=== PATIENT | male | born 1985 | race Caucasian/White ===

== ENCOUNTER 2024-08-20 14:04 | Inpatient (IN) | payer OTHER ==
[2024-08-20] VITALS (14 sets, daily range): BP systolic 126–221; BP diastolic 74–115
[~2024-08-20] VITALS: Ht 177.8 cm; Wt 167.3 kg
[2024-08-20] MEDS ORDERED: SODIUM CHLORIDE 0.9% 1,000 ML IV ONE (14:15)
[2024-08-20] MEDS ORDERED: CEFTRIAXONE SODIUM 2 GM in SODIUM CHLORIDE 0.9% 100 ML IV ONE (14:15)
[2024-08-20] MEDS ORDERED: methylPREDNISolone SOD SUCC 125 MG/2 ML VIAL IV ONE (14:15)
[2024-08-20] MEDS ORDERED: ALBUTEROL SULFATE 0.5% 2.5 MG/0.5 ML VIAL INH ONE (14:15)
[2024-08-20 14:27] LABS: BASOPHILS 0.5 % (0-2); HEMOGLOBIN 13.5 g/dL (12.0-18.0); LYMPHOCYTES 7.3 % (24-44); MCH 22.6 (27-36); MCHC 31.5 g/dl (30-36); MCV 71.7 fl (81-99); MONOCYTES 8.9 % (0-12); NEUTROPHILS 83.3 % (39-80); PLATELET COUNT 263 K/uL (140-440); RBC 5.99 M/ul (4.3-5.7); RDW 19.4 (10.5-15.0)
[2024-08-20] MEDS ORDERED: LOSARTAN POTAS100 MG PO (14:29)
[2024-08-20] MEDS ORDERED: BUPROPION XL300 MG PO (14:29)
[2024-08-20] MEDS ORDERED: NAPROXEN500 MG PO (14:30)
[2024-08-20] MEDS ORDERED: TOPROL XL25 MG PO (14:30)
[2024-08-20] MEDS ORDERED: ZANAFLEX2 M1 PO (14:31)
[2024-08-20] MEDS ORDERED: OMEPRAZOLE20 MG PO (14:31)
[2024-08-20] MEDS ORDERED: AMLODIPINE BESY10 MG PO (14:31)
[2024-08-20 14:46] LABS: LACTIC ACID, BLOOD 1.6 mmol/L (0.4-2.0)
[2024-08-20 14:47] LABS: ALBUMIN 3.3 g/dL (3.4-5.0); ALBUMIN/GLOBULIN RATIO 0.77 (1.1-2.4); ANION GAP 9.3 (7-21); BUN/CREATININE RATIO 12.3 (6.0-28.6); CALCIUM 8.7 mg/dL (8.5-10.1); CREATININE, SERUM 1.3 mg/dL (0.70-1.30); POTASSIUM 4.3 mmol/L (3.5-5.1); PROTEIN, TOTAL 7.6 g/dL (6.4-8.2)
[2024-08-20] MEDS ORDERED: AZITHROMYCIN 500 MG in DEXTROSE 5% 250 ML IV ONE (15:15)
[2024-08-20] MEDS ORDERED: LOSARTAN POTASSIUM 100 MG TAB PO ONE (15:30)
[2024-08-20] MEDS ORDERED: ACETAMINOPHEN 325 MG TAB PO PRN (16:15)
[2024-08-20] MEDS ORDERED: ondansetron HCL 4 MG/2 ML VIAL IV PRN (16:15)
[2024-08-20] MEDS ORDERED: TIZANIDINE HCL2 MG PO (16:34)
[2024-08-20 16:43] LABS: CORONAVIRUS COVID-19 AG NEGATIVE (NEGATIVE); INFLUENZA A AG NEGATIVE (NEGATIVE); INFLUENZA B AG NEGATIVE (NEGATIVE)
[2024-08-20 16:45] LABS: LACTIC ACID, BLOOD 1.6 mmol/L (0.4-2.0)
--- NOTE | 2024-08-20 16:48 | NUR ---
PT ARRIVES TO ROOM 127 VIA STRETCHER BY ED RN AND RT. PT ALERT AND TALKING, ABLE TO STAND AND PIVOT TO BED. VAPOTHERM IN PLACE AT 30L/50% FIO2 WITH DYSPNEA WITH ANY EXCERTION/TALKING. SIGNIFICANT OTHER AT BEDSIDE FOR ADMISSION. SINUS TACH IN THE 130'S ON MONITOR, RR 30'S, HYPERTENSIVE. FULL ASSESSMENT NOTED TO HAVE COURSE CRACKLES IN ALL BUT RIGHT UPPER LUNG FIELD. SIGNIFICANT LOWER EXTREMITY EDEMA NOTED. PT HAS NOT VOIDED SINCE 0800 AM. UPDATED.
[2024-08-20] MEDS ORDERED: FUROSEMIDE 40 MG/4 ML VIAL IV ONE (17:15)
--- NOTE | 2024-08-20 17:27 | NUR ---
IV LASIX ADMINISTERED PER EMAR - PT PROVIDED EDUCATION REGARDING FLUID RETENTION, SALT INTAKE, HEART FAILURE AND SOB IN RELATION. PT STATES HE HAS BEEN PROGRESSIVLY BEEN MORE FATIGUED AND SOB SINCE STARTING A NEW DIET 1 YEAR AGO THAT IS HIGH IN SALT. UPDATED ON PT HISTORY OF SYMPTOMS AND POOR HEALTH LITERACY.
[2024-08-20] MEDS ORDERED: niCARdipine HCL 50 MG in DEXTROSE 5% 250 ML IV SCH (17:45)
--- NOTE | 2024-08-20 18:11 | NUR ---
NICARDAPINE GTT STARTED PER EMAR AT 5MG/HR - PT RESTING SITTING UP IN BED, FINISHED WITH DINNER. VAPOTHERM REMAINS AT 30L/50% - SP02 93%. CONTINUED EDUCATION ON HTN PROVIDED.
--- NOTE | 2024-08-20 18:30 | NUR ---
PT TACHICARDIC TO 145 AND DESAT TO 85% WITH MOVEMENT TO EDGE OF BED TO URINATE.
--- NOTE | 2024-08-20 18:57 | NUR ---
VAPOTHERM TITRATED TO 35L AND 55% FI02, PT DESATURATING WHILE SLEEPING WITHOUT APNEA. RT UPDATED.
--- NOTE | 2024-08-20 19:45 | NUR ---
handoff report received from day shift RN. patient resting in bed, RT and family in room. no needs at this time. call light in reach.
[2024-08-20] MEDS ORDERED: ALBUTEROL/IPRATROPIUM 3 ML NEB INH SCH (20:00)
--- NOTE | 2024-08-20 20:00 | NUR ---
UPON INITIAL ASSESSMENT OF PATIENT IV PUMP, NICARDIPINE GTT INFUSING AT 2.5MG/HR. ALTHOUGH MEDICATION HAD NOT BEEN SCANNED IN EMAR FROM DAY SHIFT RN. THIS RN SCANNED MEDICATION AT THIS TIME. MEDICATION FLOWSHEET UPDATED.
--- NOTE | 2024-08-20 20:45 | NUR ---
PATIENT ASSESSMENT COMPLETE. PATIENT ON CPAP SETTINGS 15/5 AT 45% FIO2. PATIENT TOLERATING WELL. PATIENT DENIES ANY PAIN OR NAUSEA AT THIS TIME. PATIENT ON NICARDIPINE GTT AT 2.5MG/HR. IV SITE WNL. PATIENT ALERT AND ORIENTED X4. PATIENT TACHYCARDIC IN THE 120'S. PATIENT HAS NO NEEDS AT THIS TIME. CALL LIGHT IN REACH.
[2024-08-20] MEDS ORDERED: ENOXAPARIN SODIUM 40 MG/0.4 ML SYR SUB-Q SCH (21:00)
--- NOTE | 2024-08-20 21:45 | NUR ---
PATIENT TITRATED OFF NICARDIPINE GTT PER MEDICATION FLOWSHEET. PATIENT BP STABLE. PATIENT REMAINS TACHYCARDIC, HEART RATE 110-120'S. PATIEN DENIES ANY NEEDS AT THIS TIME. CALL LIGHT IN REACH.
[2024-08-20] MEDS ORDERED: methylPREDNISolone SOD SUCC 40 MG/ML VIAL IV SCH (22:00)
--- NOTE | 2024-08-20 22:00 | NUR ---
PATIENT TAKEN OFF CPAP AND PLACED ON VAPOTHERM. TOLERATING WELL. PATIENT SIGNIFICANT OTHER AT BEDSIDE, PROVIDED WITH BLANKETS AND PILLOW. PATIENT HAS NO FURTHER NEEDS AT THIS TIME. CALL LIGHT IN REACH.
--- NOTE | 2024-08-20 23:05 | NUR ---
DR JIMENES PROVIDED WITH UPDATE. NO NEW ORDERS AT THIS TIME.
--- NOTE | 2024-08-20 23:05 | NUR ---
DR JIMENES PROVIDED WITH UPDATE. VERBAL ORDER RECEIVED TO LEAVE NICARDIPINE GTT OFF UNLESS SYSTOLIC BP >180. VERIFIED BACK VIA REPEAT BACK METHOD.
--- NOTE | 2024-08-20 23:28 | NUR ---
PATIENT PLACED BACK ON CPAP AND PROVIDED WITH WARM BLANKET. NO FURTHER NEEDS AT THIS TIME. CALL LIGHT IN REACH.
[2024-08-21] VITALS (29 sets, daily range): BP systolic 117–193; BP diastolic 61–127
--- NOTE | 2024-08-21 01:00 | NUR ---
PATIENT RESTING IN BED WITH EYES CLOSED, NO ACUTE DISTRESS NOTED. PATIENT REMAINS ON CPAP, SETTINGS UNCHANGED. PATIENT REMAINS OFF NICARDIPINE GTT, BP STABLE. PATIENT SIGNIFICANT OTHER AT BEDSIDE. NO NEEDS AT THIS TIME. CALL LIGHT IN REACH.
--- NOTE | 2024-08-21 03:15 | NUR ---
patient resting in bed with eyes closed, no acute distress noted. patient remains on CPAP, tolerating well. no needs at this time. call light in reach.
[2024-08-21 05:31] LABS: BASOPHILS 0.4 % (0-2); HEMATOCRIT 41.8 % (35.0-50.0); HEMOGLOBIN 13.4 g/dL (12.0-18.0); LYMPHOCYTES 7.3 % (24-44); MCH 22.9 (27-36); MCHC 32.1 g/dl (30-36); MCV 71.4 fl (81-99); NEUTROPHILS 88.3 % (39-80); PLATELET COUNT 278 K/uL (140-440); RBC 5.85 M/ul (4.3-5.7); RDW 19.4 (10.5-15.0)
[2024-08-21 05:40] LABS: BUN/CREATININE RATIO 17.55 (6.0-28.6); CALCIUM 9.1 mg/dL (8.5-10.1); CREATININE, SERUM 1.31 mg/dL (0.70-1.30); MAGNESIUM 2.3 mg/dL (1.8-2.4)
--- NOTE | 2024-08-21 05:45 | NUR ---
patient taken off cpap and now on vapotherm. patient provided with fresh ice water. patient denies any pain at this time. patient remains off Nicardipine gtt, BP stable. patient has no further needs at this time. call light in reach.
[2024-08-21 05:59] LABS: BILIRUBIN, URINE NEGATIVE (negative); BLOOD/HGB, URINE NEGATIVE (Negative); KETONE, URINE TRACE (Negative); LEUK ESTERASE, URINE NEGATIVE (negative); NITRITE, URINE NEGATIVE (negative)
[2024-08-21] MEDS ORDERED: FUROSEMIDE 40 MG/4 ML VIAL IV ONE ×2 (06:15→08:00)
[2024-08-21] MEDS ORDERED: LOSARTAN POTASSIUM 50 MG TAB PO SCH (06:15)
--- NOTE | 2024-08-21 07:49 | NUR ---
DR. JIMENES IN ROOM TO SEE PATIENT AT THIS TIME. PATIENT TO GO DOWN FOR A 2 VIEW CXR. PT REMAINS ON VAPOTHERM AT 35L AND 40%. PT OFF NICARDIPINE GTT. PATIENT REPORTS FEELING BETTER THAN YESTERDAY. EDEMA STILL PRESENT IN LOWER LEGS.
[2024-08-21] MEDS ORDERED: buPROPion HCL XL 300 MG TAB.XL.24H PO SCH (09:00)
[2024-08-21] MEDS ORDERED: CEFTRIAXONE SODIUM 2 GM in SODIUM CHLORIDE 0.9% 100 ML IV SCH (09:00)
[2024-08-21] MEDS ORDERED: PANTOPRAZOLE SODIUM 40 MG TABEC PO SCH (09:00)
[2024-08-21] MEDS ORDERED: AZITHROMYCIN 250 MG TAB PO SCH (09:00)
--- NOTE | 2024-08-21 09:10 | NUR ---
ALERT AND ORIENTED WITH HIGH FLOW OXYGEN ON. STATES HE LIVES IN [place], HAS A ROOMMATE. DEMOGRAPHICS VERIFIED. HAS NO DME. DRIVES AT BASELINE. ABLE TO PAY UTILITIES, OBTAIN FOOD AND MEDICATIONS LONG HE HAS A ROOMMATE TO ASSIST, HE STATES. HE HAS NO INSURANCE. STATES HE HAS INITIATED APPLICATION FOR MEDICAID. HAS NO PCP EITHER. STATES HE WOULD PREFER A PCP IN [place], PREFERABLY AT THIS [facility]. CALLED MICHAEL IN MEDICAID ELIGIBILITY TO SPEAK WITH PATIENT. WILL PUT HIM ON LIST TO ESTABLISH CARE AT [facility] AND SEND CHART NOTES FOR REVIEW.
[2024-08-21] MEDS ORDERED: Perflutren Lipid Microspheres 2.2 MG/2 ML VIAL IV ONE (09:29)
[2024-08-21] MEDS ORDERED: OMEPRAZOLE40 MG PO (09:34)
--- NOTE | 2024-08-21 09:35 | NUR ---
MED REC COMPLETE
--- NOTE | 2024-08-21 09:41 | NUR ---
PATIENT TAKEN DOWN TO 2 VIEW CHEST XRAY BY THIS RN AT 0830. PT TOLERATED WELL. PT WAS ON 10 L OXYMASK FOR THIS TRANSFER. PATIENT BACK TO ROOM AND SITS ON EDGE OF BED TO EAT BREAKFAST, BACK ON VAPOTHERM 35L AND 40%. PT IS CURRENTLY 90% LAYING BACK IN BED, GETTING ECHO DONE. HR REMAINS ELEVATED, CURRENTLY 107. BLOOD PRESSURES HAVE BEEN SLOWLY INCREASING WELL, LAST BP 182/99 AND WILL CONTINUE TO MONITOR THIS. PATIENT'S LINDA FLOWERS IN ROOM. DAILY WEIGHT OBTAINED AND PATIET IS ABOUT 6 KG DOWN FROM ADMIT WEIGHT. WILL CONTINUE TO MONITOR.
--- NOTE | 2024-08-21 10:20 | NUR ---
UR CLINICAL REVIEW: ALYSSA, MEETS INPT FOR PNEUMONIA NEED FOR VAPOTHERM OXYGEN, IV ANTIBIOTICS, DIURESIS SELF PAY INPT 08/20/24 @ 1600 ORDER MATCHES REG NO AUTH, SELF PAY, REFERRED TO MEDICAID ELIGIBILITY STAFF PLAN TO DC TO HOME WHEN MEDICALLY STABLE 08/23/24
[2024-08-21] MEDS ORDERED: NIFEdipine XL 30 MG TAB PO SCH (11:00)
--- NOTE | 2024-08-21 11:06 | NUR ---
PHYS THERAPY/OT IN ROOM TO SEE PATIENT. PT TOLERATED WELL.
--- NOTE | 2024-08-21 11:47 | NUR ---
FELICIA DURING SPIRITUAL CARE ROUNDS. PT MINIMALLY CONVERSATIONAL. PROVIDED PRAYER.
[2024-08-21] MEDS ORDERED: PHARMACY RENAL DOSE ADJUSTMENT 1 DOSE MISC PO SCH (12:00)
--- NOTE | 2024-08-21 18:33 | NUR ---
PATIENT SITTING UP ON EDGE OF BED TO EAT DINNER. PATIENT WAS GIVEN PARTIAL BED BATH EARLIER, CLEAN GOWN AND LINEN, AND SHAMPOO CAP. PT WANTING TO TAKE A PROPER SHOWER ONCE HIS FIANCE RETURNS. PATIENT NOW ON VAPOTHERM AT 5 L 100% AND TOLERATING THIS WELL. HR REMAINS ELEVATED; CURRENTLY 110s. LAST BP 153/86. ECHO RESULTS ARE BACK AND IN CHART.
--- NOTE | 2024-08-21 19:40 | NUR ---
handoff report received from day shift RN. patient sitting up awake in bed with significant other at bedside. patient on vapotherm at 5L 100% FIO2. no distress noted. patient has call light in reach.
--- NOTE | 2024-08-21 20:29 | NUR ---
PATIENT TAKEN OFF VAPOTHERM AND PLACED ON 5L NC, SPO2 95%. PATIENT TOLERATING WELL. CALL LIGHT IN REACH.
--- NOTE | 2024-08-21 21:49 | NUR ---
DR KHALIL ON UNIT AND PROVIDED UPDATE
--- NOTE | 2024-08-21 23:08 | NUR ---
PATIENT PLACED ON CPAP, SETTINGS AT 15/5 AND 45%. LIGHTS DIMMED PER REQUEST. PATIENT HAS NO FURTHER NEEDS AT THIS TIME. SIGNIFICANT OTHER REMAINS AT BEDSIDE. CALL LIGHT IN REACH.
[2024-08-22] VITALS (14 sets, daily range): BP systolic 132–174; BP diastolic 53–106
--- NOTE | 2024-08-22 01:31 | NUR ---
PATIENT RESTING IN BED WITH EYES CLOSED, RR 20. PATIENT REMAINS ON CPAP, TOLERATING WELL. NO ACUTE DISTRESS NOTED. PATIENT HAS CALL LIGHT IN REACH.
--- NOTE | 2024-08-22 03:32 | NUR ---
patient noted to desat in to the 60's while asleep. patient awakened and SPO2 back up to 90's. RT called to come assess. CPAP settings changed, FIO2 at 100% to allow patient to recover per RT. this RN and RT at bedside.
--- NOTE | 2024-08-22 05:33 | NUR ---
patient awake and taken off CPAP. patient placed on 5L NC. patient stands up to use urinal and noted to desat as low as 72%. RT in room. patient has call light in reach.
[2024-08-22 05:50] LABS: HEMATOCRIT 41.6 % (35.0-50.0); LYMPHOCYTES 3.3 % (24-44); MCH 22.7 (27-36); MCHC 31.3 g/dl (30-36); MCV 72.4 fl (81-99); MONOCYTES 5.7 % (0-12); PLATELET COUNT 300 K/uL (140-440); RBC 5.74 M/ul (4.3-5.7); RDW 19.6 (10.5-15.0)
[2024-08-22 06:01] LABS: ANION GAP 6.6 (7-21); BUN/CREATININE RATIO 25.89 (6.0-28.6); CALCIUM 8.6 mg/dL (8.5-10.1); CREATININE, SERUM 1.39 mg/dL (0.70-1.30); MAGNESIUM 2.5 mg/dL (1.8-2.4); POTASSIUM 5.6 mmol/L (3.5-5.1)
[2024-08-22] MEDS ORDERED: Calcium Gluconate in NS 1,000 MG/50 ML BAG IV ONE (08:00)
--- NOTE | 2024-08-22 09:05 | NUR ---
PATIENT SITTING UP ON EDGE OF BED AND HAS FINISHED BREAKFAST. PATIENT REPORTS FEELING BETTER OVERALL. PT CURRENTLY ON 3 L NC AND SP02 IS 95%. DAILY WEIGHT HAS INCREASED FROM YESTERDAY. PATIENT NOTES THAT WHEN HE TOOK AMLODIPINE AT HOME, HE NOTICED INCREASED LEG SWELLING AND IT DECREASED AFTER HE STOPPED TAKING THIS MEDICATION AT HOME. PATIENT REPORTS GETTING A DECENT SLEEP LAST NIGHT AND DID WEAR THE CPAP. PT IS AWARE THAT HE DESATURATED FAIRLY LOW IN THE NIGHT, AND STATES, "YEAH THAT'S PROBABLY BEEN HAPPENING AT HOME." PATIENT'S FIANCE IN ROOM. EDEMA STILL PRESENT IN LOWER LEGS, 2-3+. BP THIS AM 151/94 (106). POTASSIUM HIGH AT 5.6 THIS AM. IV CALCIUM GLUCONATE BEING GIVEN. BMP ORDERED FOR 0930 THIS AM. WILL CONTINUE TO MONITOR.
[2024-08-22 09:48] LABS: ANION GAP 6.9 (7-21); BUN/CREATININE RATIO 28.12 (6.0-28.6); CALCIUM 8.7 mg/dL (8.5-10.1); CREATININE, SERUM 1.28 mg/dL (0.70-1.30); POTASSIUM 4.9 mmol/L (3.5-5.1)
--- NOTE | 2024-08-22 09:53 | NUR ---
INFORMED PATIENT MEDICAID HAS BEEN APPROVED. INFORMED HIM FOLLOW-UP APPOINTMENT WILL BE SCHEDULED WITH PHYSICIAN PRIOR TO DC. NO OTHER CM NEEDS AT THIS TIME.
--- NOTE | 2024-08-22 11:01 | NUR ---
PT NOT AVAILABLE FOR VISIT. PROVIDED PRAYER.
[2024-08-22] MEDS ORDERED: FUROSEMIDE 40 MG/4 ML VIAL IV SCH (14:13)
[2024-08-22] MEDS ORDERED: IBLOOD GLUCOSE TEST STRIP 1 EA TEST XX PRN (14:45)
[2024-08-22] MEDS ORDERED: GLUCAGON,HUMAN RECOMBINANT 1 MG/ML VIAL SUB-Q PRN (14:45)
[2024-08-22] MEDS ORDERED: DEXTROSE 50% 50 ML SYR IV PRN ×2 (14:45)
[2024-08-22] MEDS ORDERED: DEXTROSE 5% 1,000 ML IV PRN (14:45)
--- NOTE | 2024-08-22 15:01 | NUR ---
DR. KHALIL IN TO SEE PATIENT AND PLAN OF CARE DISCUSSED. PATIENT TO RECEIVE DOSE OF IV LASIX. ECHO RESULTS DISCUSSED WITH PATIENT AND MD AND PATIENT ALLOWED CHANCE TO ASK QUESTIONS. PATIENT NOW UP TO BATHROOM TO VOID AND HAVE A BM. BED LINENS CHANGED. HR IN THE 110s WITH ACTIVITY, BUT AROUND 100 WHEN RESTING IN BED. PT AGREEABLE WITH PLAN OF CARE.
[2024-08-22] MEDS ORDERED: METOPROLOL SUCCINATE 25 MG TABCR PO SCH (15:23)
[2024-08-22] MEDS ORDERED: IBLOOD GLUCOSE TEST STRIP 1 EA TEST VI SCH (17:00)
[2024-08-22] MEDS ORDERED: INSULIN LISPRO 100 UNIT/ML ML SUB-Q SCH (17:00)
[2024-08-22] MEDS ORDERED: FUROSEMIDE 40 MG/4 ML VIAL IV ONE (18:45)
--- NOTE | 2024-08-22 18:49 | NUR ---
DR. KHALIL NOTIFIED OF LOW URINE OUTPUT AFTER 40 MG IV LASIX. ADDITIONAL 40 MG IV LASIX TO BE ORDERED PER DR. KHALIL. PATIENT REMAINS ON NC AT 3 L AT THIS TIME. PT'S FIANCE IN ROOM. DENIES FURTHER NEEDS.
--- NOTE | 2024-08-22 19:45 | NUR ---
handoff report received from day shift RN. patient remains on 5L NC, tolerating well. patient laying awake in bed with significant other at bedside. no needs at this time. call light in reach.
--- NOTE | 2024-08-22 20:00 | NUR ---
JERAMIE (AKA: DELORIS) NEEDS A SLEEP STUDY DONE POST DISCHARGE. HOWEVER, DELORIS NEEDS TO BE QUALIFIED FOR A HOME BIPAP PRIOR TO DISCHARGE. LESLIECarlos MAY NEED OXYGEN BLED IN TO HOME BIPAP.
--- NOTE | 2024-08-22 20:10 | NUR ---
PATIENT ASSESSMENT COMPLETE. PATIENT SITTING UP AWAKE IN BED. PATIENT ON 3L, NC TOLERATING WELL. PATIENT IV SITE SALINE LOCKED AND WNL. PATIENT DENIES FEELING SOB, PAIN, OR NAUSEA AT THIS TIME. PATIENT UPDATED ON PLAN OF CARE FOR THE NIGHT. VITAL SIGNS STABLE. PATIENT HAS NO NEEDS AT THIS TIME. CALL LIGHT IN REACH.
--- NOTE | 2024-08-22 22:15 | NUR ---
PATIENT PROVIDED WITH FRESH ICE WATER. PATIENT SITTING UP AWAKE IN BED WATCHING HIS IPAD. PATIENT REMAINS ON 3L NC, SPO2 95%. PATIENT HAS NO FURTHER NEEDS AT THIS TIME. CALL LIGHT IN REACH.
--- NOTE | 2024-08-22 22:50 | NUR ---
patient used called light requesting to be placed on CPAP. RT called and in room. no further needs at this time. call light in reach.
--- NOTE | 2024-08-22 22:53 | NUR ---
DELORIS'S CURRENT BIPAP SETTINGS ARE: IPAP 16, EPAP 10, RR 12, I-TIME 0.9, RISE 3, FIO2 245. DELORIS STATED THAT THE SETTINGS ARE COMFORTABLE FOR HIM. ADDITIONALLY, FIO2 IS NOT CURRENTLY ABOVE 30%.
--- NOTE | 2024-08-22 23:32 | NUR ---
DELORIS REMAINS ON THE V60, BUT IS CURRENTLY ON PCV MODE WITH THE FOLLOWING SETTINGS: IPAP 18, EPAP 14, I-TIME 0.8, RISE 2, FIO2 32%.
[2024-08-23] VITALS (15 sets, daily range): BP systolic 128–186; BP diastolic 75–100
--- NOTE | 2024-08-23 00:34 | NUR ---
PATIENT NOTED TO DESAT TO LOW 60'S WHILE ASLEEP ON BIPAP. RT CALLED TO BEDSIDE. THIS RN AND RT REMAIN AT BEDSIDE.
--- NOTE | 2024-08-23 00:35 | NUR ---
patient noted to desat to low 60's while asleep on CPAP. RT called to bedside. this RN and RT in room.
--- NOTE | 2024-08-23 00:36 | NUR ---
DELORIS IS REMAINS ON THE V60. HIS CURRENT SETTINGS ARE: AVAPS VT 500, EPAP 12, MIN P 16, MAX P 20, I-TIME 0.9, RISE 4, FIO2 455. DELORIS IS CURRENTLY WEARING A LARGE MIRAGE QUATTRO FOR A FFM.
[2024-08-23] MEDS ORDERED: ALBUTEROL SULFATE 0.083% 3 ML VIAL INH PRN (01:15)
--- NOTE | 2024-08-23 02:14 | NUR ---
PATIENT RESTING IN BED WITH EYES CLOSED. PATIENT REMAINS ON BIPAP, TOLERATING WELL AT THIS TIME, SPO2 99%. PATIENT HAS NO NEEDS AT THIS TIME, CALL LIGHT IN REACH.
--- NOTE | 2024-08-23 03:33 | NUR ---
DELORIS REMAINS ON THE V60 AVAPS WITH THE FOLLOWING SETTINGS: EPAP: 14, MIN P: 16, MAX P: 20, RR: 18, I-TIME: 0.9, RISE: 3, FIO2: 50%.
--- NOTE | 2024-08-23 05:10 | NUR ---
PT CALLS TO GET OFF OF HIS CPAP AND ON TO NC @ 3L, PROVIDED. URINAL EMPTIED. ICE WATER PROVIDED. PT STATES NO OTHER NEEDS. CALL LIGHT IN REACH.
[2024-08-23 05:34] LABS: BASOPHILS 0.2 % (0-2); EOSINOPHILS 0.1 % (0-6); HEMATOCRIT 41.3 % (35.0-50.0); HEMOGLOBIN 12.8 g/dL (12.0-18.0); MCH 22.4 (27-36); MCV 72.2 fl (81-99); MONOCYTES 5.2 % (0-12); NEUTROPHILS 88.5 % (39-80); PLATELET COUNT 333 K/uL (140-440); RBC 5.72 M/ul (4.3-5.7); RDW 19.8 (10.5-15.0)
[2024-08-23 05:46] LABS: ANION GAP 10.1 (7-21); BUN/CREATININE RATIO 26.71 (6.0-28.6); CALCIUM 8.7 mg/dL (8.5-10.1); CREATININE, SERUM 1.46 mg/dL (0.70-1.30); MAGNESIUM 2.3 mg/dL (1.8-2.4); POTASSIUM 5.1 mmol/L (3.5-5.1)
[2024-08-23] MEDS ORDERED: BUDESONIDE 0.5 MG/2 ML VIAL INH SCH (08:00)
--- NOTE | 2024-08-23 09:30 | NUR ---
INTO SEE PATIENT. TALKED WITH PATIENT ABOUT PLAN OF SETTING PCP UP. ALSO DISCUSSED THE IMPORTANCE OF GETTING A SLEEP STUDY DONE. PATIENT AWARE. ASKED PATIENT IF HE NEEDS TO GO HOME ON OXYGEN WHAT COMPANY HE MAY WANT TO USE. PATIENT CHOICE LETTER GIVEN. PATIENT WOULD LIKE TO USE [employer].
--- NOTE | 2024-08-23 09:40 | NUR ---
TALKED WITH ELISA FROM THE CLINIC. PATIENT SCHEDULED TO SEE DR. DAVILA ON August AT 1:40 PM. APPOINTMENT IN DISCHARGE. CLINIC IS TO GET PATIENT RECORDS FROM [facility] IN [place] WHERE THE PATIENT HAS BEEN PRIMARLIY SEEN. ELISA ALSO WROTE THAT THE PATIENT NEEDS A SLEEP STUDY STAT IF THERE IS ANY CANCELLATIONS.
--- NOTE | 2024-08-23 09:47 | NUR ---
PT UP IN CHAIR, BS 144 1 UNIT INSULIN GIVEN AND EDUCATED PT ON ROUTINE. 3L NC OXYGEN AT 93%, PT LOWER LEGS RED AND SWOLLEN PLUS 2 EDEMA NOTED. CALL LIGHT IN REACH.
--- NOTE | 2024-08-23 10:27 | NUR ---
dr connor in to see pt, abg drawn r arm by keisha RT, pt sitting in bed denies needs, legs red and swollen dr derek. discussed diet and salt. o2 3l nc. call light in reach.
[2024-08-23 10:29] LABS: HCO3, BLOOD GAS 31.7 mmol/L (22-26); O2 SATURATION, BLOOD GAS 95.8 % (95.0-100.0); OXYGEN RECEIVED, BLOOD GAS 3L; PH, BLOOD GAS 7.38 (7.35-7.45); PO2, BLOOD GAS 76 mmHg (80-100); TOTAL CO2, BLOOD GAS 33.3
--- NOTE | 2024-08-23 13:11 | NUR ---
UR CLINICAL REVIEW: MCG, MEETS INPT FOR PNEUMONIA VARIANCE FOR GL DAY 2 NEED FOR OXYGEN, IV ANTIBIOTICS, DIURESIS WITH IV LASIX, IV STEROID BASIC DMAP (MEDICAID) INPT 08/20/24 @ 1600 ORDER MATCHES REG NO AUTH REQUIRED PER MEDICAID RULE PLAN TO DC TO HOME WHEN MEDICALLY STABLE 08/26/24
--- NOTE | 2024-08-23 13:26 | NUR ---
In room to do CHF education. Went through [facility] Get with the Guidlines. Heart Failure booklet. Pt verbalized understanding and ask appropriate question. Pt had no further questions before [facility] nurse left room. Pt aware nurse will be available until 5 pm today if he has any other questions.
--- NOTE | 2024-08-23 15:17 | NUR ---
Pt and RN discussing sleep apnea, rt raul noted that stop bang score and Omaha sleepiness scale would be useful data for his DANE work up. stop bang score 7/8 neck size 54 cm around neck at gonzalez apple weight 171 kg/ 378 lbs height 5 ft 10 inches bmi= 54.3 bsa=2.74 Omaha scale score is = 21 a score of 10 or greater is concern pt score is 21. pt is set up with a pcp to get an appt. for a referral for sleep study. ABG was done today showing: PH normal 7.38 pco2 high - 53.0 retaining Po2 low -76 HCO3 high 31.7 pt is currently on 3l nc oxygen sats 93%. pt medical records here from Primary [facility] has diagnosis of insomnia, htn, hopoxemia, migraine and sleep apnea noted on 01/08/2020. Dr. Robert Hernandez, DO
--- NOTE | 2024-08-23 15:49 | NUR ---
yesenia john primary special educator in with pt and his gf. pt denies needs.
--- NOTE | 2024-08-23 16:45 | NUR ---
pt to ct scan with rn via wc pt tollerated well - returned to room denies needs. vital taken, bs 154, 1 unit insulin given. pt has call light in reach.
--- NOTE | 2024-08-23 18:05 | NUR ---
rn spoke with dr connor about cta of chest + PE - see new orders, pt old records here and pt admits to having a sleep study at [facility] rn will attempt to get info for pt and RT. Pt denies needs.
[2024-08-23] MEDS ORDERED: FUROSEMIDE 40 MG/4 ML VIAL IV SCH (18:18)
--- NOTE | 2024-08-23 19:12 | NUR ---
and rn in to talk with pt about new dx of PE, pt denies needs, call light in reach, 150/95 108 map, hr 93, 3l nc 95.
--- NOTE | 2024-08-23 20:00 | NUR ---
PATIENT SITTING UP AT THE SIDE OF BED, HE IS ALERT AND ORIENTED, HIS SIGNIFICANT OTHER IS SITTING IN RECLINER. MORE EDUCATION PROVIDED ON ELIQUIS HE HAS PRINT OUT PROVIDED, MORE EDUCATION ON DISEASE PROCESSES AND TREATMENTS SHORT AND JAIL GOALS AND PLANS, INCLUDING DANE TREATMENT, DM, FLUIDS/SWELLING, B/P AND FOLLOWING UP WITH PCP AND STAYING ON TREATMENT PLANS POST HOSPITAL STAY. PATIENT VERBALIZES HE IS VERY MOTIVATED TO IMPROVE HIS HEALTH.
--- NOTE | 2024-08-23 20:50 | NUR ---
DEWAYNE SMITH IN PATIENT ROOM TO PROVIDE TREATMENTS AND EDUCATION, DISCUSS PLAN FOR WHEN TO GO ON CPAP. PATIENT SAID AROUND 1100 PM HE AND HIS SIGNIFICANT OTHER ARE PLANNING TO WATCH A MOVIE ON TV TOGETHER. PATIENT PROVIDED WITH BED BATH KIT AND TOWEL HE FEELS GREASY ON HIS LEGS AFTER U.S. COMPLETED. THIS RN ASKED, "WOULD YOU LIKE ME TO DO THE WASH DOWN ON YOUR LEGS?" PATIENT SAID, "NO, I CAN DO IT, OR SHE WILL DO IT (REFERING TO RONNIE SIGNIFICANT OTHER)". FRESH ICE WATER PROVIDED WELL. PATIENT VERBALIZED NO OTHER NEEDS AT THIS TIME.
[2024-08-23] MEDS ORDERED: APIXABAN 5 MG TAB PO SCH (21:00)
--- NOTE | 2024-08-23 23:48 | NUR ---
PATIENT CALLED NURSES STATION TO REPORT HE IS READY FOR CPAP MACHINE TO BE PLACED FOR SLEEP. PATIENT ASSESSMENT COMPLETE, PATIENT RPEORTS CHRONIC PAIN AT LOWER BACK FOR 4 YEARS, USES MASSAGE AT HOME. DISCUSSED POSSIBLE LIDOCAINE PATCH, HE REPORTS IT FEELS LIKE MAYBE A NERVE PINCHED. HE SAID, "ITS OK FOR NOW, I HAVE GOTTEN USED TO IT." PATIENT DECLINED TYLENOL. HE IS RESTING IN, HE REPOSITIONED SELF MORE COMFORT IN BED FOR SLEEP. PATIENT HAS NO OTHER CONCERNS OR QUESTIONS.
[2024-08-24] VITALS (17 sets, daily range): BP systolic 130–180; BP diastolic 81–897
--- NOTE | 2024-08-24 | NUR ---
PATIENT USED CALL LIGHT TO REPORT HE IS READY TO HAVE THE BIPAP PLACED FOR SLEEP. SARAH Ocampo CALLED TO PLACE MASK AND MAKE ADJUSTMENTS TO BIPAP SETTINGS. ASSESSMENT COMPLETE, NO NEW CONCERNS. PATIENTS SIGNIFICANT OTHER SLEEPING ON ROOM COUCH.
--- NOTE | 2024-08-24 00:11 | NUR ---
DELORIS IS CURRENTLY ON THE V60 BIPAP MODE WITH THE FOLLOWING SETTINGS: IPAP: 20, EPAP: 14, RR: 18, I-TIME: 0.9, RISE: 4, FIO2: 35%. HE APPEARS COMFORTABLE SLEEPING.
--- NOTE | 2024-08-24 01:14 | NUR ---
DELORIS REMAINS ON THE V60. HE IS CURRENTLY ON AVAPS MODE WITH THE FOLLOWING SETTINGS: VT: 300, RR: 18, EPAP: 12, IPAP: 13-20, I-TIME: 0.9, RISE: 3, LUCERO: 35%.
--- NOTE | 2024-08-24 03:02 | NUR ---
PATIENT RESTING QUIETLY IN BED, WITH BIPAP MACHINE IN USE ON AVAPS MODE. NO DISTRESS NOTED, V/S STABLE 95% OXYGEN SATURATION WITH 35% FIO2.
--- NOTE | 2024-08-24 03:13 | NUR ---
PATIENT OXYGEN SATURATION DROPPED TO 74% WHILE ON BIPAP, THIS RN AT BEDSIDE, PATIENT WAS NOTED TO HAVE LOW MINUTE VOL AND TIDAL VOLUME DESATURATION TO 88% THEN DROPPED SUDDEN TO 74% THIS RN PROMPTED PATIENT TO TAKE A DEEP BREATH, PATIENT OPENED EYES AND BEGAN TO BREATH MORE REGULAR, OXYEN SATURATION QUICKLY ELEVATED TO 100%, NOW AT 97% ON BIPAP.
--- NOTE | 2024-08-24 03:26 | NUR ---
VIDA IS TILL HAVING APNEIC PERIOS EVEN ON AVAPS. HE REMAINS ON THE V60 AVAPS MODE WITH THE FOLLOWING SETTINGS: VT: 300, EPAPl 14, IPAP: 15-20, I-TIME: 0.9, RISE: 3, FIO2: 35%.
--- NOTE | 2024-08-24 03:30 | NUR ---
RT JUST FLIPPED DELORIS TO BIPAP ON THE V60 WITH THE FOLLOWING SETTINGS: IPAP: 25, EPAP: 15, I-TIME: 0.9, RISE: 3, FIO2: 35%
--- NOTE | 2024-08-24 04:09 | NUR ---
PATIENT CALLED NURSES STATION, THIS RN INTO PATIENT ROOM, PATIENT ASKED TO HAVE BIPAP MASK TAKEN OFF, ONCE OFF, PATIENT SAID, "I NEED TO PEE AND MY MOUTH IS REALLY DRY, I NEED A DRINK." PATIENT PLACED BACK TO WALL OXYGEN 3L PER N.C., PATIENT VERBALIZED NO OTHER NEEDS AT THIS TIME.
[2024-08-24 05:23] LABS: BASOPHILS 0.4 % (0-2); HEMATOCRIT 41.1 % (35.0-50.0); LYMPHOCYTES 6.1 % (24-44); MCH 22.7 (27-36); MCHC 31.6 g/dl (30-36); MCV 71.8 fl (81-99); MONOCYTES 5.5 % (0-12); PLATELET COUNT 336 K/uL (140-440); RBC 5.72 M/ul (4.3-5.7); RDW 19.5 (10.5-15.0)
[2024-08-24 05:31] LABS: ANION GAP 8.6 (7-21); BUN/CREATININE RATIO 27.06 (6.0-28.6); CALCIUM 8.9 mg/dL (8.5-10.1); CREATININE, SERUM 1.33 mg/dL (0.70-1.30); MAGNESIUM 2.5 mg/dL (1.8-2.4); POTASSIUM 4.6 mmol/L (3.5-5.1)
--- NOTE | 2024-08-24 06:00 | NUR ---
ROUNDING FOR AM ASSESSMENT AND SCHEDULED AM MEDICATION PASS. PATIENT RESTING IN BED HEAD OF BED ELEVATED, HE IS NOTED TO BE SNORING ON 3L N.C. 96% OXYGEN SATURATION, PATIENT ALERT TO RN AT COMPUTER LOGING IN. ASSESSMENT COMPLETE, NO NEW CONCERNS THIS AM. PATIENT UP TO STANDING SCALE FOR DAILY WEIGHT. PATIENT REPORTS NO NEEDS THIS AM.
--- NOTE | 2024-08-24 08:00 | NUR ---
RECEIVED REPORT AT 0700. PT AWAKE IN ROOM SITTING ON THE SIDE OF BED WITH SPOUSE IN THE ROOM. PT DENIED ANY NEEDS AND NO NEW CONCERNS WERE NOTED.
--- NOTE | 2024-08-24 09:00 | NUR ---
ALL LOBES ARE CLEAR, LOWER LOBES ARE DIMINISHED. +2 PITTING EDEMA PERSIST IN LOWER LEGS. URINE OUTPUT OVERNIGHT WDL, PT REMAINS ON 3L O2 NC. PT DENIES SOB BUT STILL HAS SHORT EPISODES EVEN WHEN AWAKE WITH DESATURATION TO THE MID 80'S ON 3L O2. PT DOES BECOME TACHYCARDIC WITH ACTIVITY UP TO 110 WHEN JUST MOVING TO THE SIDE OF THE BED.
--- NOTE | 2024-08-24 09:07 | NUR ---
SPOKE AT LENGTH WITH NESTOR FROM [facility] ABOUT CONCERNS OF THIS PATIENT GOING HOME WITH OUT A NONINVASIVE VENT MACHINE. DISCUSSED PATIENT INSURANCE, CURRENT DIAGNOSIS AND CURRENT PLAN OF CARE. LET HER KNOW PATIENT HAD A SLEEP STUDY DONE IN THE PAST. NESTOR STATES PATIENT NEEDS A CURRENT SLEEP STUDY, AND THAT BASIC D MAP WOULD NOT COVER THIS NON-INVASIVE VENT.
--- NOTE | 2024-08-24 09:45 | NUR ---
INTO SEE PATIENT. TALKED WITH PATIENT ABOUT NEW PCP HOW CRUCIAL IT IS TO MAKE TO THAT APPOINTMENT. DISCUSSED IMPORTANCE OF GOING TO CARDIOPULMONARY REHAB. GAVE PATIENT INFORMATION ABOUT [facility]SP[facility]. NO QUESTIONS. NO FUTHER CM NEEDS AT THIS TIME.
--- NOTE | 2024-08-24 10:00 | NUR ---
ASKED [facility] IF PATIENT WOULD BE ABLE TO BUY A NON INVASIVE VENT WITHOUT A PERSCRIPTION AND THEY STATED THEY DO NOT DO THAT.
--- NOTE | 2024-08-24 11:00 | NUR ---
PT SITTING ON THE SIDE OF BED AND IS ON THE PHONE. PT HAS NO NEEDS AT THIS TIME. NO NEW CONCERNS NOTED AT THIS TIME. DIURESIS IS GOING WELL.
--- NOTE | 2024-08-24 12:00 | NUR ---
PT AAOX4, ALL LOBES CLEAR BUT LOWER LOBES STILL DIMINISHED. PT HAD GOOD URINE OUTPUT AFTER LASIX WAS GIVEN THIS MORNING. PITTING EDEMA IN LOWER LEGS REAMINS AT A +2. PHYS. THERAPY TO WORK WITH PT THIS AFTERNOON. OVERALL NO NEW CONCERNS NOTED.
[2024-08-24] MEDS ORDERED: guaiFENesin 600 MG TABCR PO PRN (12:15)
[2024-08-24] MEDS ORDERED: LIDOCAINE HCL 4% 1 EACH PATCH TD SCH (12:21)
--- NOTE | 2024-08-24 13:58 | NUR ---
PT WAS PUT DOWN TO 1L O2NC BY RT. THUS FAR PT O2 SATS ARE BETWEEN 90-94% ON 1LO2. OVERALL NO NEW CONCERNS NOTED AT THIS TIME.
--- NOTE | 2024-08-24 16:00 | NUR ---
LEFT LOWER LOBE SEEMS MORE DIMINISHED THAN WITH EARLIER ASSESSMENTS. OTHERWISE THRID SHIFT ASSESSMENT WAS UNCHANGED. PT WALKED WITH PHYS. THERAY AND HAS BEEN ENCOURAGED TO AT LEAST WALK X3/DAY. PT STATED THAT HIS RECOVERY TIME AFTER WALKING IS MUCH SHORTER NOW.
--- NOTE | 2024-08-24 18:00 | NUR ---
PT CURRENTLY EATING DINNER. NO INSULIN NEEDED. LEFT LOBES ARE CLEAR AND DIMINISHED. NOT DIMINISHED EARLIER THIS AFTERNOON.
--- NOTE | 2024-08-24 18:30 | NUR ---
PT AMBULATED IN HALLWAY THIS SHIFT X2. PT DID THREE LAPS IN CCU HALLWAY. 3L O2 WAS SUFFICIENT TO KEEP O2SATS AT OR ABOVE 90%. WITH REST, PT HAS REMAINED ON 1L O2 NC SINCE LUNCH TIME. BED LINNEN WAS CHANGED THIS SHIFT.
--- NOTE | 2024-08-24 20:09 | NUR ---
PATIENT SITTING UP AT SIDE OF, ALERT AND ORIENTED, THIS RN AND PATIENT RECAPPED TODAYS EVENTS AND PLAN OF CARE FOR TONIGHT, MEDICATIONS AND PAIN MANAGEMENT. DISCUSSED HEALTHY DIET PLANS INCLUDING DM AND CARDIAC LOW SALT. THIS RN ASKED IF PATIENT FELT THERE IS ANY OTHER EDUCATION THAT HE FELT HE NEEDED FURTHER EDUCATIONS ON, HE SAID DIET PLANS.
[2024-08-24] MEDS ORDERED: LIDOCAINE PATCH REMOVAL 1 EA TD SCH (21:00)
[2024-08-24] MEDS ORDERED: methylPREDNISolone SOD SUCC 40 MG/ML VIAL IV SCH (21:00)
--- NOTE | 2024-08-24 21:51 | NUR ---
PATIENT EDUCATIONS ON DM AND HEART HEALTHY DIET PRINTED FROM BOTH [employer] AND UP TO DATE, THIS RN WENT THROUGH PACKET AND GAVE OVER VIEW, PACKET HAS MEAL IDEAS FOR APPROPRIATE CARBS AND HEALTHY CHOICES. PATIENT AND KRISTIE IN ROOM BOTH ABLE TO VERBALIZE GOOD KNOWLEDGE PRIOR TO EDUCATION PROVIDED, PATIENT SAID HE HAS RESEARCHED DIET PLANS AND IS VERY FAMILIAR WITH CARBS/PROTIEN/FAT AND SUGARS AND HEALTHY CHOICES HE VERBALIZED HE IS FAR MORE MOTIVATED NOW TO MAKE THE HEALTHIER CHOICES GOING FORWARD.
--- NOTE | 2024-08-24 21:57 | NUR ---
PATIENT DESATURATING WHILE RESTING IN BED, OXYGEN TITRATED UP TO 3L N.C. FOR NOW.
[2024-08-25] VITALS (10 sets, daily range): BP systolic 125–165; BP diastolic 77–103
--- NOTE | 2024-08-25 00:05 | NUR ---
DELORIS IS ON THE V60 AVAPS MODE WITH THE FOLLOWING SETTINGS: VT: 300, RR: 16, I-TIME: 0.8, RISE: 4, EPAP: 12, IPAP: 13-20, FIO2: 35%.
--- NOTE | 2024-08-25 03:42 | NUR ---
DELORIS REMAINS ON THE V60 AVAPS MODE WITH THE FOLLOWING SETTINGS: VT: 300, RR: 16, I-TIME: 0.8, RISE: 4, EPAP: 12, IPAP: 13-20, FIO2: 35%.
[2024-08-25 05:18] LABS: BASOPHILS 0.2 % (0-2); EOSINOPHILS 0.1 % (0-6); HEMATOCRIT 42.6 % (35.0-50.0); HEMOGLOBIN 13.4 g/dL (12.0-18.0); LYMPHOCYTES 6.6 % (24-44); MCH 22.4 (27-36); MCHC 31.4 g/dl (30-36); MCV 71.3 fl (81-99); MONOCYTES 4.8 % (0-12); NEUTROPHILS 88.3 % (39-80); PLATELET COUNT 349 K/uL (140-440); RBC 5.97 M/ul (4.3-5.7); RDW 19.1 (10.5-15.0)
--- NOTE | 2024-08-25 05:21 | NUR ---
PATIENT USED CALL LIGHT TO CALL NURSES STATION, THIS RN INTO PATIENT ROOM, HE ASKED TO HAVE BIPAP MASK REMOVED AT THIS TIME, BARNES 5 HOURS OF CONTINUOUSE USE OVER NIGHT. PATIENT REPORTS NEED TO USE URINAL, THEN WEIGHT OBTAINED ON STANDING SCALE. PATIENT ASSESSMENT COMPLETE, NO NEW CONCERNS THIS AM.
[2024-08-25 05:28] LABS: ANION GAP 6.4 (7-21); BUN/CREATININE RATIO 25.51 (6.0-28.6); CREATININE, SERUM 1.45 mg/dL (0.70-1.30); MAGNESIUM 2.6 mg/dL (1.8-2.4); POTASSIUM 5.4 mmol/L (3.5-5.1)
--- NOTE | 2024-08-25 05:31 | NUR ---
PATIENT REPORTS HE SLEPT WELL ON V60, AVAPS MODE. HE TOLERATED WELL FROM [id number]. HE MAINTAINED OXYGEN SATURATIONS AVERAGE 90-94%, HE DID DESATURATE OCCASSIONALLY TO 85% AT THE LOWEST BUT DID NOT SUSTAIN. HE HAS REMAINED AFEBRILE, URINE OUT 850ML OVER NIGHT, AND PO INTAKE WATER 600ML. B/P HAS BEEN ELEVATED OVERNIGHT SYSTOLIC HIGH 160'S. HIS SIGNIFICANT OTHER HAS BEEN SLEEPING ON ROOM COUCH OVERNIGHT. EDEMA IN BILATERAL LOWER EXTREMETIES CONTINUES TO IMPROVE SLOWLY, CONTINUES TO BE ASSESSED AT 2+ PITTING EDEMA. EDUCATIONS PRINTED OUT AND DISCUSSED FOR HEART HEALTHY/DIABETIC DIET. PATIENT VERBALIZES HE IS VERY MOTIVATED TO MAKE HEALTHY CHANGES TO HIS LIFE STYLE. HE DEMONSTRATES EAGERNESS TO LEARN.
--- NOTE | 2024-08-25 08:17 | NUR ---
PATIENT SITTING UP ON EDGE OF BED WITH LINDA LEON IN ROOM. PATIENT STATES HE SLEPT PRETTY GOOD, WEARING THE BIPAP MASK MOST OF THE NIGHT. PATIENT CURRENTLY ON 2 L AND TITRATED DOWN TO 1 L NC. HR IN THE 80-90s. PLAN OF CARE DISCUSSED. PATIENT WANTING TO SHOWER TODAY AND WILL HELP HIM WITH THIS. WEIGHT DOWN TO 168.5 KG. EDEMA STILL PRESENT IN LOWER LEGS BUT IMPROVED FROM A FEW DAYS AGO.
--- NOTE | 2024-08-25 09:35 | NUR ---
DR. KHALIL IN TO SEE PATIENT AND PLAN OF CARE DISCUSSED. PATIENT REQUESTING NEW IV SITE AND NEW SITE STARTED IN RIGHT FOREARM. IV ABX INFUSING. PATIENT IS GOING TO SHOWER NEXT AND FIANCE WILL HELP HIM WITH SHOWER. PT ON ROOM AIR AND WHEN NOT MOVING AROUND, CAN KEEP SP02 >90%, BUT WITH ANY ACTIITY, SP02 DROPS TO MID 80s. PATIENT CAN RECOVER BY TAKING DEEP BREATHS AND GET SP02 BACK TO MID90s. WHEN STANDING TO VOID, SP02 DOWN TO 76% AT LOWEST AND HEART RATE UP TO 110s. ONCE SITTING AGAIN, HR BACK DOWN TO 80s AND SP02 BACK UP TO 94%. PT DENIES FEELING SHORT OF BREATH.
[2024-08-25 13:11] LABS: ANION GAP 6.8 (7-21); BUN/CREATININE RATIO 25.87 (6.0-28.6); CALCIUM 9.2 mg/dL (8.5-10.1); CREATININE, SERUM 1.43 mg/dL (0.70-1.30); POTASSIUM 4.8 mmol/L (3.5-5.1)
--- NOTE | 2024-08-25 14:51 | NUR ---
PATIENT RESTING IN BED AT THIS TIME. PATIENT NOW ON TELE #8. PT REMAINS ON 1 L NC. WHILE PATIENT IS SLEEPING AND SNORING, NOTED THAT HE DID HAVE A DESATURATION ALL THE WAY DOWN TO 62%. PATIENT AWOKEN BY RN AND HIS FIANCE IN ROOM AND RECOVERS SP02 BACK TO THE 90s BUT IT TAKES 1-2 MINUTES APPROX. 2ND DOSE OF IV LASIX GIVEN AND PT VOIDING TO URINAL. WILL CONTINUE TO MONITOR.
--- NOTE | 2024-08-25 19:54 | NUR ---
PATIENT SITTING UP AT SIDE OF BED, RESPIRATORY THERAPIST IN ROOM FOR SCHEDULED TREATMENTS. 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
--- NOTE | 2024-08-25 21:00 | NUR ---
ROUNDING, WHEN FINISHED THIS RN ASKED, "IS THERE ANYTHING ELSE YOU NEED RIGHT NOW." THE PATIENT ASKED, "YOU WOULD HAPPEN TO HAVE A SANDWICH LAYING AROUND WOULD YOU?" THIS RN SAID, "I WOULD SOME PEANUT BUTTER AND CRACKERS SOUND GOOD?" PATIENT SAID, "SURE." PROVIDED. PATIENT HAS NO FURHTER REQUESTS. HE AND HIS SIGNIFICANT OTHER ESSENCE ARE PLAYING VIDEO GAMES ON THEIR PHONES.
--- NOTE | 2024-08-25 23:50 | NUR ---
PATIENT CALLED NURSES STATION TO REPORT HE IS READY TO HAVE BIPAP PLACED FOR SLEEP AT THIS TIME. SARAH Ocampo CALLED TO ASSESS AND PLACE BIPAP MASK.
--- NOTE | 2024-08-26 00:06 | NUR ---
DELORIS IS CURRENTLY ON THE V60 BIPAP S/T MODE WITH THE FOLLOWING SETTINGS: IPAP: 18, EPAP: 12, RR: 16, I-TIME: 1.0, RISE: 3, FIO2: 35%
--- NOTE | 2024-08-26 02:46 | NUR ---
PATIENT NOTED TO HAVE OXYGEN DESATURATION TO MID 60% OXYGEN SATURATION WHILE ON BIPAP. THIS RN INTO ROOM, PATIENT NOTED TO BE HAVING APNIC EPISODE. THIS RN PATTED PATIENT SHOULDER SAY HIS NAME TO WAKE PATIENT TO TAKE A BREATH, PATIENT THEN RECOVERED TO 93% IMMEDIATELY. PATIENT WAS NOTED BY OTHER RN WATCHING TELEMETRY UNIT THAT PATIENTS LOWEST OXYGEN SATURATION WAS 58% JUST BEFORE PATIENT AROUSED TO BREATH.
--- NOTE | 2024-08-26 02:57 | NUR ---
PATIENT AGAIN DESASTURATED FAST REACHING 50% FIO2, RN AT [facility] TO WAKE PATIENT, HE WOKE TOOK DEEP BREATHS NOW BACK TO 99%.
--- NOTE | 2024-08-26 03:11 | NUR ---
DELORIS REMAINS ON THE V60 BUPAP WITH THE FOLLOWING SETTINGS: EPAP: 12, IPAP: 18, RR: 16, I-TIME: 1.0, RISE: 3, FIO2: 35%
--- NOTE | 2024-08-26 03:28 | NUR ---
PATIENT HAD ANOTHER APNIC EPISODE AND DESATURATED TO 46% AT THE LOWEST, RN AT BEDSIDE, WOKE PATIENT TO TAKE DEEP BREATHS. PATIENT REQUIRED SEVERAL PROMPS TO TAKE DEEP BREATHS TO RECOVER OVER 5 SECONDS FOR PATIENT OXYGEN SATURATIONTO RETURN TO 95% AND THEN TO 100%, PATIENT IS ORIENTED, COOPERATIVE TO CARE REPORTS FEELING FINE.
--- NOTE | 2024-08-26 04:45 | NUR ---
PATINET DESATURATION TO 70% OXYGEN SATURATION, THIS RN INTO ROOM WOKE PATIENT, HE ASKED TO COME OFF BIPAP, ON 1L OXYGEN N.C. 97%. ASSESSMENT COMPLETE, NO NEW CONCERNS, HE IS SITTING UP TO SIDE OF BED. FRESH WATER PROVIDED, V/S STABLE. HE VERBALIZED NO FURTHER NEEDS AT THIS TIME.
[2024-08-26 05:11] LABS: BASOPHILS 0.2 % (0-2); EOSINOPHILS 0.6 % (0-6); HEMATOCRIT 42.9 % (35.0-50.0); HEMOGLOBIN 13.5 g/dL (12.0-18.0); LYMPHOCYTES 12.5 % (24-44); MCH 22.6 (27-36); MCHC 31.5 g/dl (30-36); MCV 71.6 fl (81-99); MONOCYTES 7.2 % (0-12); NEUTROPHILS 79.5 % (39-80); PLATELET COUNT 351 K/uL (140-440); RBC 5.99 M/ul (4.3-5.7); RDW 19.6 (10.5-15.0)
[2024-08-26 05:17] VITALS: BP 164/99
[2024-08-26 05:42] LABS: ALBUMIN 3.3 g/dL (3.4-5.0); ALBUMIN/GLOBULIN RATIO 0.92 (1.1-2.4); ANION GAP 5.9 (7-21); BILIRUBIN, TOTAL 0.5 mg/dL (0.2-1.0); BUN/CREATININE RATIO 26.41 (6.0-28.6); CREATININE, SERUM 1.59 mg/dL (0.70-1.30); POTASSIUM 3.9 mmol/L (3.5-5.1); PROTEIN, TOTAL 6.9 g/dL (6.4-8.2)
[2024-08-26] MEDS ORDERED: BUDESONIDE 0.5 MG/2 ML VIAL INH SCH (08:00)
[2024-08-26 08:04] VITALS: BP 150/86
[2024-08-26] MEDS ORDERED: FUROSEMIDE 40 MG/4 ML VIAL IV SCH (09:00)
[2024-08-26] MEDS ORDERED: methylPREDNISolone SOD SUCC 40 MG/ML VIAL IV SCH (09:00)
--- NOTE | 2024-08-26 10:02 | NUR ---
PATIENT IN GOOD SPIRITS THIS AM AND SITTING UP ON EDGE OF BED. PT'S LINDA LEON REMAINS IN ROOM AND ATTENTIVE TO PATIENT. PLAN OF CARE DISCUSSED. PT GIVEN MEDS PER EMAR INCLUDING 40 MG IV LASIX. PT REMAINS ON TELE #8. PT ON AND OFF OXYGEN INTERMITTENTLY, NEEDING 0.5-1L. PATIENT WANTING TO TAKE A SHOWER AGAIN TODAY WHICH WILL BE ARRANGED. REMAINS IN NSR 80-90s. MARIE HOSE APPLIED TO LOWER LEGS. WEIGHT THIS AM 168 KG. PT TO BE PLACED ON 1800 ML FLUID RESTR[address]ON PER DR. KHALIL. DENIES ANY SHORTNESS OF BREATH. PT STILL HAD PROFOUND DESATURATIONS AT NIGHT WHEN SLEEPING WITH OXYGEN LEVELS DROPPING LOW THE 40%s ON SP02 AND NEEDING TO BE AWOKEN FROM SLEEP TO GET O2 LEVELS BACK TO >90%. WILL CONTINUE TO MONITOR.
--- NOTE | 2024-08-26 10:50 | NUR ---
DR. KHALIL IN ROOM TO SEE PATIENT AND PLAN OF CARE BEING DISCUSSED. PT VOIDS 675 ML. PT CURRENTLY ON ROOM AIR AND SP02 IS 97%. HR IN THE 90s.
[2024-08-26 11:53] VITALS: BP 159/99
[2024-08-26] MEDS ORDERED: METOPROLOL SUCCINATE 25 MG TABCR PO ONE (12:15)
[2024-08-26 13:10] LABS: ANION GAP 4.8 (7-21); BUN/CREATININE RATIO 23.37 (6.0-28.6); CALCIUM 8.7 mg/dL (8.5-10.1); CREATININE, SERUM 1.54 mg/dL (0.70-1.30); POTASSIUM 4.8 mmol/L (3.5-5.1)
[2024-08-26] MEDS ORDERED: ALBUTEROL/IPRATROPIUM 3 ML NEB INH SCH (14:00)
[2024-08-26 15:59] VITALS: BP 142/90
--- NOTE | 2024-08-26 19:15 | NUR ---
PATIENT AMBULATING HALLS WITH SIGNIFICANT OTHER AT SHIFT CHANGE REPORT, HE IS TOLERATING ACTIVITY WELL ON ROOM AIR 89-92% OXYGEN SATURATION.
--- NOTE | 2024-08-26 20:00 | NUR ---
PATIENT RESTING IN BED DISCUSSED PLAN OF CARE FOR TONIGHT. THIS RN WILL BE PLACING PATIENT ON MONITOR FOR OXYGEN LEVELS WHILE ON BIPAP TONIGHT, PATIENT AGREEABLE TO ALL CARE PLAN GOALS. HE DOES REPORT THAT THE LIDODERM PATCH DOES SEEM TO HELP WITH HIS LOW BACK PAIN. PATIENT AWARE OF FLUIDS REMAINING PER HIS FLUID RESTRICTION ORDER, HE ASKED FOR FRESH WATER AT THIS TIME IT IS PROVIDED.
[2024-08-26 21:23] VITALS: BP 148/97
--- NOTE | 2024-08-26 21:26 | NUR ---
PATIENT RESTING IN BED WATCHING A SHOW ON HIS PHONE. KRISTIE SITTING IN RECLINER. PATIENT HS MEDICATION PASS COMPLETE. HE IS ALERT AND ORIENTED, V/S STABLE. NO NEW CONCERNS, PATIENT REPORTS HE IS GOING TO TRY LAYING THE HEAD OF BED DOWN AND SLEEP IN HIS SIDE LIKE HE DOES AT [facility], THIS RN SAID THAT SOUNDS GREAT, THAT WILL GIVE US AN IDEA OF HOW WELL YOU OXYGENATE IN YOUR USUAL SLEEPING POSITION. WATER PROVIDED TO RONNIE. NO OTHER REQUESTS AT THIS TIME.
--- NOTE | 2024-08-26 23:13 | NUR ---
PATIENT CALLED TO HAVE BIPAP SET UP FOR SLEEP. Damaris KELLY INTO ROOM TO ASSIST.
[2024-08-26 23:19] VITALS: BP 140/67
--- NOTE | 2024-08-27 00:29 | NUR ---
PATIENT RESTING QUIELTY IN BED, ON BIPAP MACHINE ON AVAPS MODE, 100% OXYEN SATURATION. NO DISTRESS NOTED.
[2024-08-27 05:29] LABS: BASOPHILS 0.3 % (0-2); EOSINOPHILS 0.7 % (0-6); HEMATOCRIT 41.6 % (35.0-50.0); HEMOGLOBIN 13.2 g/dL (12.0-18.0); LYMPHOCYTES 13.9 % (24-44); MCH 22.8 (27-36); MCHC 31.6 g/dl (30-36); MCV 72.1 fl (81-99); MONOCYTES 7.9 % (0-12); NEUTROPHILS 77.2 % (39-80); PLATELET COUNT 358 K/uL (140-440); RBC 5.77 M/ul (4.3-5.7); RDW 19.3 (10.5-15.0)
--- NOTE | 2024-08-27 05:30 | NUR ---
PATIENT OFF BIPAP PER HIS REQUEST, HE ASKED FOR MORE WATER, FINAL AMOUNT FOR 24 HOUR FLUID RESTRICTION PROVIDED.
[2024-08-27 05:48] LABS: ALBUMIN 3.1 g/dL (3.4-5.0); ALBUMIN/GLOBULIN RATIO 0.89 (1.1-2.4); ANION GAP 10.1 (7-21); BILIRUBIN, TOTAL 0.6 mg/dL (0.2-1.0); BUN/CREATININE RATIO 23.97 (6.0-28.6); CALCIUM 8.4 mg/dL (8.5-10.1); CREATININE, SERUM 1.46 mg/dL (0.70-1.30); POTASSIUM 4.1 mmol/L (3.5-5.1); PROTEIN, TOTAL 6.6 g/dL (6.4-8.2)
[2024-08-27 06:15] VITALS: BP 130/86
--- NOTE | 2024-08-27 06:18 | NUR ---
PATIENT SITTING UP AT BEDSIDE, ALERT AND ORIENTED. ASSESSMENT THIS AM DONE. NO NEW CONCERNS. HE VERBALIZES THAT HE CONTINUES TO HOPE TO DISCHARGE TODAY.
[2024-08-27 08:17] VITALS: BP 134/87
--- NOTE | 2024-08-27 08:18 | NUR ---
PATIENT SITTING UP ON EDGE OF BED AND EATING BREAKFAST. PATIENT STATES HE HAD A GOOD NIGHT AND SLEPT BETTER, FEELING MORE RESTED. WEIGHT IS 167.3 KG. PT EAGER TO POTENTIALLY D/C HOME TODAY. PATIENT DENIES HEADACHE THIS AM BUT DOES HAVE SOME STIFFNESS IN HIS BACK. PT'S S/O REMAINS IN ROOM. BP THIS AM 134/87 (102). PT SPENDING MORE TIME ON ROOM AIR NOW AND SP02 IS 97% WHILE SITTING ON EDGE OF BED.
[2024-08-27] MEDS ORDERED: METOPROLOL SUCCINATE 50 MG TABCR PO SCH (09:00)
[2024-08-27] MEDS ORDERED: predniSONE 20 MG TAB PO SCH (09:00)
[2024-08-27 09:07] VITALS: BP 134/87
[2024-08-27] MEDS ORDERED: ALBUTEROL2.5 MG/3 M INH (10:45)
[2024-08-27] MEDS ORDERED: SOAANZ40 MG PO (10:46)
[2024-08-27] MEDS ORDERED: POTASSIUM CHLO20 ME1 PO (10:46)
[2024-08-27] MEDS ORDERED: PREDNISONE20 MG PO (10:47)
[2024-08-27] MEDS ORDERED: PREDNISONE10 MG PO ×2 (10:49→11:41)
[2024-08-27] MEDS ORDERED: PREDNISONE5 MG PO (10:49)
[2024-08-27] MEDS ORDERED: ELIQUIS5 MG PO ×2 (10:50→10:51)
[2024-08-27] MEDS ORDERED: METFORMIN HCL1000 MG PO (10:52)
--- NOTE | 2024-08-27 10:52 | NUR ---
DISCUSSED DC TO HOME, NEED FOR REFERRAL FOR CARDIOPULONARY REHAB AT [facility] AND HOME OXYGEN. PATIENT CHOICES PROVIDED. PREFERS [facility] FOR OXYGEN. REINFORCED TRANSPORTATION WITH [facility]. INFORMED PATIENT WILL SET UP OXYGEN AND NOTIFY HIM WHEN [facility] WITH SET HIS HOME OXYGEN UP.
--- NOTE | 2024-08-27 11:03 | NUR ---
ORDERS, NOTES, HOME OXYGEN QUALIFIER, FACESHEET FAXED TO [facility].
[2024-08-27] MEDS ORDERED: PROCARDIA XL60 MG PO (11:38)
[2024-08-27] MEDS ORDERED: TOPROL XL50 MG PO (11:38)
--- NOTE | 2024-08-27 12:58 | NUR ---
CALLED AND CONFIRMED [facility] HAS HOME OXYGEN ORDER. NO TIMEFRAME FOR SET UP YET. PATIENT NOTIFIED. OXYGEN TANK GIVEN TO PATIENT TO TAKE HOME. [facility] PHONE NUMBER PROVIDED TO PATIENT TO CALL IF HE DOES NOT HEAR FROM [employer] [facility] THIS AFTERNOON. [facility].
== END 2024-08-27 13:05 | disposition home or self-care (01) | DRG 193 ==
LOC: ED 14:04 → EDBD 14:05 → CCU 16:27
PROVIDERS: Emergency Medicine; Family Medicine; ADMIT Student in an Organized Health Care Education/Training Program; ATTEND Student in an Organized Health Care Education/Training Program
PROC: 5A09357 Assistance with Respiratory Ventilation, Less than 24 Consecutive Hours, Continuous Positive Airway Pressure (ICD-10-PCS; principal; 2024-08-20)
PROC: 5A0935A Assistance with Respiratory Ventilation, Less than 24 Consecutive Hours, High Flow/Velocity Cannula (ICD-10-PCS; principal; 2024-08-20)
DX: J18.9 Pneumonia, unspecified organism (principal); I26.99 Other pulmonary embolism without acute cor pulmonale; J96.01 Acute respiratory failure with hypoxia; J45.901 Unspecified asthma with (acute) exacerbation; I50.30 Unspecified diastolic (congestive) heart failure; K21.9 Gastro-esophageal reflux disease without esophagitis; F39 Unspecified mood [affective] disorder; G47.33 Obstructive sleep apnea (adult) (pediatric); E11.9 Type 2 diabetes mellitus without complications; M54.9 Dorsalgia, unspecified; I11.0 Hypertensive heart disease with heart failure; D72.829 Elevated white blood cell count, unspecified; G89.29 Other chronic pain; E87.5 Hyperkalemia; Z79.899 Other long term (current) drug therapy; Z88.8 Allergy status to other drugs, medicaments and biological substances
CPT/HCPCS: 36415; 36600; 71045; 71046; 71260; 80048; 80053; 81003; 82803; 83036; 83605; 83735; 83880; 85025; 87040; 87186; 93306; 93970; 94640; 94660; 94668; 94761; 94762; 94799; 97110; 97161; 97165; 97530; 97535; A9270; J0456; J0696; J1650; J1815; J1938; J2919; J7060; J7512; Q9957